=== PATIENT | female | born 2000 | race Two or more races ===

== ENCOUNTER 2023-01-02 02:22 | Emergency (ER) | payer SELFPAY ==
[2023-01-02] MEDS ORDERED: Ondansetron 4 MG/2 ML SDV IVPUSH ONE (02:37)
[2023-01-02] MEDS ORDERED: Morphine 4 MG/ML Syringe IVPUSH ONE (02:38)
[2023-01-02] MEDS ORDERED: Lactated Ringers 1,000 ML IV SCH (02:45)
[2023-01-02 03:07] LABS: CARBON DIOXIDE,CO2 24.5 mmol/L (21.0-32.0); POTASSIUM,K 3.4 mmol/L (3.5-5.1)
[2023-01-02] MEDS ORDERED: Alum Hydro/Mag Hydro/Simeth XS 15 ML, Lidocaine 2% 5 ML PO ONE ×2 (03:38)
[2023-01-02] MEDS ORDERED: Aluminum Hydroxide/Magnesium Hydroxide/Simethicone XS Susp 30 ML Cup ONE (03:44)
[2023-01-02] MEDS ORDERED: Lidocaine 2% Viscous Solution 15 ML UD ONE (03:46)
[2023-01-02 03:48] LABS: CORONAVIRUS COVID-19 NAA NEGATIVE (NEGATIVE); INFLUENZA A NAA NEGATIVE (NEGATIVE); INFLUENZA B NAA NEGATIVE (NEGATIVE)
[2023-01-02] MEDS ORDERED: Acetaminophen 325 MG Tab PO ONE (05:22)
[2023-01-02] MEDS ORDERED: Ondansetron 4 MG Tab.DIS PO ONE (05:22)
[2023-01-02] MEDS ORDERED: Pantoprazole 40 MG in Sodium Chloride 0.9% 10 ML IVPUSH ONE (05:22)
== END 2023-01-02 06:37 | disposition home or self-care (01) ==
LOC: MW.ED 02:22
DX: O99.891 Other specified diseases and conditions complicating pregnancy (principal); R10.13 Epigastric pain; Z20.822 Contact with and (suspected) exposure to COVID-19; Z3A.01 Less than 8 weeks gestation of pregnancy
CPT/HCPCS: 0240U; 36415; 80053; 81003; 83690; 84702; 84703; 85025; 96361; 96374; 96375; 99284; A9270; C9113; J2270; J2405; J3490; J7120

== ENCOUNTER 2023-01-03 00:03 | Emergency (ER) | payer SELFPAY ==
[2023-01-03] MEDS ORDERED: Morphine 4 MG/ML Syringe IVPUSH ONE (00:08)
[2023-01-03] MEDS ORDERED: Ondansetron 4 MG/2 ML SDV IVPUSH ONE (00:08)
[2023-01-03] MEDS ORDERED: Lactated Ringers 1,000 ML IV SCH (00:15)
[2023-01-03 01:27] LABS: BLOOD UREA NITROGEN,BUN 6 mg/dL (7.0-18.0); CARBON DIOXIDE,CO2 25.6 mmol/L (21.0-32.0); CHLORIDE,CL 101 mmol/L (98-107); GLUCOSE RANDOM 86 mg/dL (74-106); LIPASE 81 U/L (73-393); POTASSIUM,K 3.7 mmol/L (3.5-5.1); SODIUM,NA 137 mmol/L (136-145)
[2023-01-03 01:29] LABS: ESTIMATED GFR 92 mL/min (>60)
[2023-01-03] MEDS ORDERED: Alum Hydro/Mag Hydro/Simeth XS 15 ML, Lidocaine 2% 5 ML PO ONE ×2 (03:47)
== END 2023-01-03 05:27 | disposition home or self-care (01) ==
LOC: MW.ED 00:03
DX: K29.70 Gastritis, unspecified, without bleeding (principal)
CPT/HCPCS: 36415; 76705; 80053; 81003; 83605; 83690; 85025; 96361; 96374; 96375; 99284; A9270; J2270; J2405; J7120

== ENCOUNTER 2023-01-27 07:30 | Emergency (ER) | payer SELFPAY ==
[2023-01-27] MEDS ORDERED: Ondansetron 4 MG/2 ML SDV IVPUSH ONE (07:39)
[2023-01-27] MEDS ORDERED: Famotidine 20 MG/2 ML SDV IVPUSH ONE (07:39)
[2023-01-27] MEDS ORDERED: Sodium Chloride 0.9% 1,000 ML IV ONE (07:39)
[2023-01-27] MEDS ORDERED: Alum Hydro/Mag Hydro/Simeth XS 15 ML, Lidocaine 2% 5 ML PO ONE ×2 (07:40)
[2023-01-27] MEDS ORDERED: Acetaminophen 500 MG Tab PO ONE ×2 (08:02→08:13)
[2023-01-27 08:58] LABS: CORONAVIRUS COVID-19 NAA NEGATIVE (NEGATIVE); INFLUENZA A NAA NEGATIVE (NEGATIVE); INFLUENZA B NAA NEGATIVE (NEGATIVE)
[2023-01-27 09:13] LABS: POTASSIUM,K 3.7 mmol/L (3.5-5.1)
[2023-01-27] MEDS ORDERED: Dextrose 5%-0.9% NaCl 1,000 ML IV SCH (09:15)
[2023-01-27] MEDS ORDERED: Cephalexin 500 MG Cap PO ONE (09:47)
[2023-01-27] MEDS ORDERED: cefTRIAXone 1 GM in Sodium Chloride 0.9% 50 ML IV ONE (09:48)
== END 2023-01-27 11:25 | disposition home or self-care (01) ==
LOC: MW.ED 07:30
DX: O21.9 Vomiting of pregnancy, unspecified (principal); O23.41 Unspecified infection of urinary tract in pregnancy, first trimester; N39.0 Urinary tract infection, site not specified; Z20.822 Contact with and (suspected) exposure to COVID-19
CPT/HCPCS: 0240U; 36415; 76705; 76801; 80053; 81001; 82009; 82947; 83690; 83735; 84702; 85025; 96361; 96365; 96375; 99284; A9270; J0696; J2405; J3490; J7030; J7042; J7050

== ENCOUNTER 2023-03-03 17:53 | Emergency (ER) | payer SELFPAY | END 2023-03-03 18:50 | disposition left against medical advice (07) | LOC: MW.ED 17:53 | DX: Z53.21 Procedure and treatment not carried out due to patient leaving prior to being seen by health care provider (principal) ==

== ENCOUNTER 2023-03-03 20:02 | Observation (INO) | payer SELFPAY ==
[2023-03-03] MEDS ORDERED: Sodium Chloride 0.9% 10 ML Syringe FLUSH PRN (21:47)
[2023-03-03] MEDS ORDERED: Sodium Chloride 0.9% 2.5 ML Syringe FLUSH PRN (21:47)
[2023-03-03] MEDS ORDERED: Sodium Chloride 0.9% 1,000 ML IV ONE (21:52)
[2023-03-03 23:06] LABS: POTASSIUM,K 3.6 mmol/L (3.5-5.1)
[2023-03-03 23:55] LABS: CORONAVIRUS COVID-19 NAA NEGATIVE (NEGATIVE); INFLUENZA A NAA NEGATIVE (NEGATIVE); INFLUENZA B NAA NEGATIVE (NEGATIVE); RESPIRATORY SYNCYTIAL VIR NAA NEGATIVE (NEGATIVE)
[2023-03-03] MEDS ORDERED: cefTRIAXone 1 GM in Sodium Chloride 0.9% 50 ML IV ONE (23:57)
[2023-03-04] MEDS ORDERED: Acetaminophen 500 MG Tab PO PRN (01:55)
[2023-03-04] MEDS ORDERED: Morphine 2 MG/ML SYRINGE IVPUSH PRN (08:48)
[2023-03-04] MEDS ORDERED: Ondansetron 4 MG/2 ML SDV IVPUSH PRN (08:48)
[2023-03-04] MEDS: Acetaminophen 1,000 MG in Premix Bag 1 BAG IV PRN ×3 (09:27→22:14)
[2023-03-04] MEDS: Sodium Chloride 0.9% 1,000 ML IV SCH ×2 (09:28→21:41)
[2023-03-04 09:46] LABS: CARBON DIOXIDE,CO2 22.8 mmol/L (21.0-32.0); POTASSIUM,K 3.7 mmol/L (3.5-5.1)
[2023-03-04] MEDS: Piperacillin/Tazobactam 3.375 GM in Sodium Chloride 0.9% 100 ML IV SCH ×3 (10:08→21:00)
[2023-03-05] MEDS: Piperacillin/Tazobactam 3.375 GM in Sodium Chloride 0.9% 100 ML IV SCH ×2 (02:38→08:55)
[2023-03-05] MEDS ORDERED: Acetaminophen 325 MG Tab PO PRN (05:58)
== END 2023-03-05 11:35 | disposition home or self-care (01) ==
LOC: MW.ED 20:02 → MW.OB 23:55
PROVIDERS: ADMIT Obstetrics & Gynecology Obstetrics; ATTEND Obstetrics & Gynecology Obstetrics
DX: O23.02 Infections of kidney in pregnancy, second trimester (principal); O26.892 Other specified pregnancy related conditions, second trimester; R10.11 Right upper quadrant pain; Z3A.19 19 weeks gestation of pregnancy; Z20.822 Contact with and (suspected) exposure to COVID-19; Z90.49 Acquired absence of other specified parts of digestive tract
CPT/HCPCS: 0241U; 36415; 72195; 74181; 76705; 76805; 80053; 81001; 83605; 83690; 85025; 85027; 87040; 87086; 96361; 96365; 96367; 96375; 96376; 99285; A9270; G0378; J0131; J0696; J2405; J2543; J3490; J7030; 99284

== ENCOUNTER 2023-05-23 20:56 | Observation (INO) | payer OTHER ==
[2023-05-23 22:17] LABS: BILIRUBIN,URINE NEGATIVE (NEGATIVE); COLOR,URINE YELLOW; GLUCOSE,URINE NEGATIVE (NEGATIVE); KETONES,URINE 40 mg/dL (NEGATIVE); LEUKOCYTE ESTERASE,URINE SMALL (NEGATIVE); NITRITE,URINE POSITIVE (NEGATIVE); OCCULT BLOOD,URINE NEGATIVE (NEGATIVE); PROTEIN,URINE NEGATIVE (NEGATIVE)
[2023-05-23 22:34] LABS: APPEARANCE,URINE SLT CLOUDY
[2023-05-23 22:35] LABS: BACTERIA,URINE 4+ (NEGATIVE); EPITHELIAL CELLS,URINE MODERATE (NONE-FEW); RBC,URINE 0-1 (0-2/HPF)
[2023-05-23] MEDS ORDERED: Lactated Ringers 1,000 ML IV SCH (23:45)
[2023-05-23 23:49] LABS: C. TRACHOMATIS BY PCR NOT DETECTED; N. GONORRHOEAE BY PCR NOT DETECTED
[2023-05-23] MEDS ORDERED: Acetaminophen 325 MG Tab PO PRN (23:51)
[2023-05-23] MEDS ORDERED: cefTRIAXone 1 GM in Sodium Chloride 0.9% 50 ML IV ONE (23:51)
[2023-05-24 00:38] LABS: BASOPHILS PERCENT AUTO 0.1 % (0.0-1.5); EOSINOPHILS PERCENT AUTO 0.1 % (0.0-7.0); HEMATOCRIT 32.9 % (36.0-46.0); HEMOGLOBIN 10.9 g/dL (12.0-16.0); LYMPHOCYTES ABSOLUTE AUTO 1.3 K/uL (0.6-2.4); LYMPHOCYTES PERCENT AUTO 9.1 % (16.0-40.0); MEAN CORPUSCULAR HEMOGLOBIN 30.9 pg (27.0-32.0); MEAN CORPUSCULAR HGB CONC 33.1 g/dL (31.0-37.0); MEAN CORPUSCULAR VOLUME 93.2 fL (80.0-98.0); MONOCYTES ABSOLUTE AUTO 0.8 K/uL (0.0-0.8); MONOCYTES PERCENT AUTO 5.4 % (0.0-15.0); NEUTROPHILS ABSOLUTE AUTO 11.8 K/uL (1.4-5.7); NEUTROPHILS PERCENT AUTO 85.3 % (48.0-80.0); PLATELET COUNT,PLT 173 K/uL (150-400); RED BLOOD CELL COUNT 3.53 M/uL (4.30-5.90)
[2023-05-24] MEDS ORDERED: Ondansetron 4 MG/2 ML SDV IVPUSH PRN (00:53)
[2023-05-24] MEDS ORDERED: Acetaminophen 325 MG Tab PO ONE (08:47)
[2023-05-24] MEDS ORDERED: cefTRIAXone 1 GM in Sodium Chloride 0.9% 50 ML IV ONE (12:24)
[2023-05-24] MEDS ORDERED: Lactated Ringers 1,000 ML IV ONE (12:28)
== END 2023-05-24 16:45 | disposition home or self-care (01) ==
LOC: MW.OBCHECK 20:56 → MW.OB 20:56 → MW.OBCHECK 23:49 → MW.OB 23:50
PROVIDERS: ADMIT Obstetrics & Gynecology Obstetrics; ATTEND Obstetrics & Gynecology Obstetrics
DX: O23.12 Infections of bladder in pregnancy, second trimester (principal); N30.00 Acute cystitis without hematuria; O47.03 False labor before 37 completed weeks of gestation, third trimester; Z3A.30 30 weeks gestation of pregnancy
CPT/HCPCS: 36415; 59025; 81001; 85025; 87086; 87088; 87186; 87491; 87591; 96365; 96375; 96376; A9270; G0378; J0696; J2405; J3490; J7120

== ENCOUNTER 2023-07-09 03:26 | Inpatient (IN) | payer OTHER ==
[2023-07-09] MEDS: Acetaminophen 325 MG Tab PO ONE ×2 (05:43→07:02)
[2023-07-09] MEDS ORDERED: Misoprostol 200 MCG Tab PO PRN (07:55)
[2023-07-09] MEDS ORDERED: Sodium Chloride 0.9% 10 ML Syringe FLUSH PRN (07:55)
[2023-07-09] MEDS ORDERED: Tranexamic Acid IN NACL,ISO-OS 1,000 MG in Premix Bag 1 BAG IV PRN ×2 (07:55)
[2023-07-09] MEDS ORDERED: Carboprost Tromethamine 250 MCG/1 mL Vial IM PRN (07:55)
[2023-07-09] MEDS ORDERED: Ondansetron 4 MG/2 ML SDV IVPUSH PRN (07:55)
[2023-07-09] MEDS ORDERED: Sodium Chloride 0.9% 20 ML SDV IV PRN (07:55)
[2023-07-09] MEDS ORDERED: Lidocaine 1% 50 ML MDV INJECT PRN (07:55)
[2023-07-09] MEDS ORDERED: Sodium Chloride 0.9% 2.5 ML Syringe FLUSH PRN (07:55)
[2023-07-09] MEDS ORDERED: Methylergonovine 0.2 MG/1 ML Amp IM PRN (07:55)
[2023-07-09] MEDS ORDERED: Water For Irrigation,Sterile 1,000 ML Container IRR PRN (07:55)
[2023-07-09] MEDS ORDERED: Nalbuphine 10 MG/0.5 ML Syringe IVPUSH PRN (07:57)
[2023-07-09] MEDS ORDERED: Oxytocin/0.9 % Sodium Chloride 30 UNIT/500 ML BAG IV SCH (08:00)
[2023-07-09] MEDS ORDERED: ePHEDrine 50 MG/ML SDV IVPUSH PRN ×2 (08:22)
[2023-07-09] MEDS ORDERED: Phenylephrine HCl 0.5 MG/5 ML AMP IVPUSH PRN (08:22)
[2023-07-09] MEDS ORDERED: Ropivacaine HCl/PF 400 MG in Premix Bag 1 BAG EPIDUR SCH (08:30)
[2023-07-09 08:50] LABS: HEMATOCRIT 35.3 % (36.0-46.0); HEMOGLOBIN 11.8 g/dL (12.0-16.0); MEAN CORPUSCULAR HEMOGLOBIN 30.1 pg (27.0-32.0); MEAN CORPUSCULAR HGB CONC 33.4 g/dL (31.0-37.0); MEAN CORPUSCULAR VOLUME 90.1 fL (80.0-98.0); NRBC ABSOLUTE 0 K/uL; NRBC PERCENT 0.2 /100WBC; RED BLOOD CELL COUNT 3.92 M/uL (4.30-5.90); WHITE BLOOD CELL COUNT,WBC 10.45 K/uL (4.0-11.0)
[2023-07-09 09:09] LABS: PLATELET COUNT,PLT 130 K/uL (150-400)
[2023-07-09] MEDS: Lactated Ringers 1,000 ML IV SCH ×2 (11:07→12:20)
[2023-07-09] MEDS ORDERED: Dexmedetomidine 200 MCG/2 ML SDV ONE (11:38)
[2023-07-09] MEDS ORDERED: Bisacodyl 10 MG Supp RECTAL PRN (17:12)
[2023-07-09] MEDS ORDERED: Witch Hazel Medicated Pads 40/Jar TOP PRN (17:12)
[2023-07-09] MEDS ORDERED: Lanolin 100% Cream 7 GM Tube TOP PRN (17:12)
[2023-07-09] MEDS ORDERED: Benzocaine/Menthol 20%-0.5% Spray 78 GM Cannister TOP PRN (17:12)
[2023-07-09] MEDS ORDERED: Acetaminophen 500 MG Tab PO PRN ×2 (17:12)
[2023-07-09] MEDS ORDERED: Docusate Sodium 100 MG Cap PO PRN (17:12)
[2023-07-09] MEDS ORDERED: Ibuprofen 400 MG Tab PO PRN (17:12)
[2023-07-09] MEDS ORDERED: Ibuprofen 800 MG Tab PO PRN (17:12)
[2023-07-10 05:55] LABS: HEMATOCRIT 32.3 % (36.0-46.0); HEMOGLOBIN 10.9 g/dL (12.0-16.0)
== END 2023-07-10 18:36 | disposition home or self-care (01) | DRG 806 ==
LOC: MW.OBCHECK 03:26 → MW.OB 03:27 → MW.OBCHECK 16:00 → OBSVTOIN 16:50 → MW.OB 20:16
PROVIDERS: ADMIT Obstetrics & Gynecology Obstetrics; ATTEND Obstetrics & Gynecology Obstetrics
PROC: 10E0XZZ Delivery of Products of Conception, External Approach (ICD-10-PCS; principal; 2023-07-09)
PROC: 3E0R3BZ Introduction of Anesthetic Agent into Spinal Canal, Percutaneous Approach (ICD-10-PCS; 2023-07-09)
PROC: 00HU33Z Insertion of Infusion Device into Spinal Canal, Percutaneous Approach (ICD-10-PCS; 2023-07-09)
DX: O34.219 Maternal care for unspecified type scar from previous cesarean delivery (principal); D62 Acute posthemorrhagic anemia; Z37.0 Single live birth; O42.02 Full-term premature rupture of membranes, onset of labor within 24 hours of rupture; O90.81 Anemia of the puerperium; Z3A.37 37 weeks gestation of pregnancy; Z87.440 Personal history of urinary (tract) infections; Z90.89 Acquired absence of other organs
CPT/HCPCS: 36415; 51702; 59025; 59409; 85014; 85018; 85027; 86592; 86850; 86900; 86901; A9270-GY; J2590; J3490; J7120

== ENCOUNTER 2024-11-10 06:42 | Emergency (ER) | payer OTHER ==
[2024-11-10 07:37] LABS: BASOPHILS ABSOLUTE AUTO 0.02 K/uL (0.00-0.20); BASOPHILS PERCENT AUTO 0.1 % (0.0-1.0); EOSINOPHILS ABSOLUTE AUTO 0.08 K/uL (0.00-0.45); EOSINOPHILS PERCENT AUTO 0.5 % (0.0-6.0); HEMATOCRIT 38.6 % (37.0-47.0); HEMOGLOBIN 13.3 g/dL (12.0-16.0); IMMATURE GRAN ABSOLUTE AUTO 0.06 K/uL (0.00-0.05); IMMATURE GRAN PERCENT AUTO 0.4 % (0.0-0.4); LYMPHOCYTES ABSOLUTE AUTO 1.09 K/uL (1.00-4.80); LYMPHOCYTES PERCENT AUTO 7.5 % (24.0-44.0); MEAN CORPUSCULAR HEMOGLOBIN 30.6 pg (28.0-32.0); MEAN CORPUSCULAR HGB CONC 34.5 g/dL (32.0-36.0); MEAN CORPUSCULAR VOLUME 88.9 fL (83.0-99.0); MEAN PLATELET VOLUME 11.6 fL (9.4-12.3); MONOCYTES ABSOLUTE AUTO 0.57 K/uL (0.00-0.80); MONOCYTES PERCENT AUTO 3.9 % (0.0-8.0); NEUTROPHILS ABSOLUTE AUTO 12.75 K/uL (1.80-7.70); NEUTROPHILS PERCENT AUTO 87.6 % (41.0-71.0); PLATELET COUNT,PLT 271 K/uL (150-400); RED BLOOD CELL COUNT 4.34 M/uL (4.10-5.30); WHITE BLOOD CELL COUNT,WBC 14.57 K/uL (3.9-11.3)
[2024-11-10] MEDS: Ondansetron 4 MG/2 ML SDV IVPUSH ONE (07:43)
[2024-11-10] MEDS: Sodium Chloride 0.9% 1,000 ML IV STA (07:43)
[2024-11-10] MEDS: Sodium Chloride 0.9% 2.5 ML Syringe FLUSH PRN (07:43)
[2024-11-10] MEDS: Sodium Chloride 0.9% 10 ML Syringe FLUSH PRN (07:43)
[2024-11-10 07:55] LABS: A/G RATIO 0.9 (0.9-1.6); ALBUMIN 3.6 g/dL (3.4-5.0); BILIRUBIN TOTAL 0.4 mg/dL (0.2-1.0); CALCIUM 8.9 mg/dL (8.5-10.1); CARBON DIOXIDE,CO2 23.7 mmol/L (21.0-32.0); CREATININE 0.9 mg/dL (0.6-1.0); EST CRCL DRUG DOSING (CG) 82.46 mL/min; MAGNESIUM 1.6 mg/dL (1.8-2.4); POTASSIUM,K 4.6 mmol/L (3.5-5.1); PROTEIN TOTAL,TP 7.8 g/dL (6.4-8.2)
[2024-11-10] MEDS: Morphine 4 MG/ML Syringe IVPUSH ONE (08:18)
[2024-11-10 08:25] LABS: APPEARANCE,URINE SLT CLOUDY; BILIRUBIN,URINE NEGATIVE (NEGATIVE); COLOR,URINE YELLOW; GLUCOSE,URINE NEGATIVE (NEGATIVE); KETONES,URINE NEGATIVE (NEGATIVE); LEUKOCYTE ESTERASE,URINE NEGATIVE (NEGATIVE); NITRITE,URINE NEGATIVE (NEGATIVE); OCCULT BLOOD,URINE TRACE-INTACT (NEGATIVE); PROTEIN,URINE NEGATIVE (NEGATIVE); UROBILINOGEN,URINE 0.2 EU/dL (<2.0)
[2024-11-10 08:36] LABS: BACTERIA,URINE 2+ (NEGATIVE); EPITHELIAL CELLS,URINE OCCASIONAL (NONE-FEW); RBC,URINE 0-2 (0-2/HPF)
[2024-11-10] MEDS: Iopamidol 755 Mg/ML 100 ML Bottle IVPUSH ONE (09:59)
== END 2024-11-10 10:17 | disposition home or self-care (01) ==
LOC: MW.ED 06:42
DX: K80.20 Calculus of gallbladder without cholecystitis without obstruction (principal); N30.00 Acute cystitis without hematuria; Z90.49 Acquired absence of other specified parts of digestive tract; Z79.899 Other long term (current) drug therapy; Z75.8 Other problems related to medical facilities and other health care
CPT/HCPCS: 36415; 74177; 76705; 80053; 81001; 81025; 83690; 83735; 84484; 85025; 96361; 96374; 96375; 99284; J2270; J2405; J7030; Q9967; J3490